=== PATIENT | male | born 1975 | race Caucasian/White ===

== ENCOUNTER → 2018-12-01 | Outpatient (CLI) | payer OTHER ==
[~2018-12-01] MED LIST: ALPR2TAB8 PO; LORC10TA PO; TRIA1CAP3 PO
== END | disposition home or self-care (01) ==
LOC: CVU 13:48
PROVIDERS: ATTEND Internal Medicine Cardiovascular Disease
DX: I34.0 Nonrheumatic mitral (valve) insufficiency (principal); I48.0 Paroxysmal atrial fibrillation; I10 Essential (primary) hypertension
CPT/HCPCS: 93306

== ENCOUNTER → 2019-12-08 | Outpatient (CLI) | payer OTHER ==
[~2019-12-08] MED LIST changes: +OMNIPAQUE 350 MG/ML, 100ML BOTTLE ONE
== END | disposition home or self-care (01) ==
LOC: CFH 08:57
PROVIDERS: ATTEND Internal Medicine Cardiovascular Disease
DX: I51.7 Cardiomegaly (principal); I48.91 Unspecified atrial fibrillation
CPT/HCPCS: 71046; 75572; Q9967

== ENCOUNTER 2019-12-14 06:32 | Observation (INO) | payer OTHER ==
[~2019-12-14] VITALS: Ht 185.4 cm; Wt 124.6 kg
[~2019-12-14 06:32] MED LIST changes: -OMNIPAQUE 350 MG/ML, 100ML BOTTLE ONE
[2019-12-14] MEDS ORDERED: SODIUM CHLORIDE 0.9% 1,000 ML IV SCH ×2 (06:36→07:00)
[2019-12-14 06:47] VITALS: BP 131/90
[2019-12-14] MEDS ORDERED: ASPI81TA45 PO (06:58)
[2019-12-14] MEDS ORDERED: METO25TA91 PO (06:58)
[2019-12-14] MEDS ORDERED: ALPR2TAB2 PO (06:59)
[2019-12-14 07:34] LABS: BASOPHILS # (AUTO) 0.06 x10^3/uL (0-0.1); BASOPHILS % (AUTO) 1 % (0-1); EOSINOPHILS # (AUTO) 0.09 x10^3/uL (0-0.4); EOSINOPHILS % (AUTO) 1 % (1-7); LYMPHOCYTES # (AUTO) 2.55 x10^3/uL (1-3.4); LYMPHOCYTES % (AUTO) 31 % (22-44); MD NO; MEAN CORPUSCULAR HGB CONC 33.4 g/dL (33.2-36.2); MEAN CORPUSCULAR VOLUME 89.9 fL (81-97); MEAN PLATELET VOLUME 8.8 fL (7.4-10.4); MONOCYTES # (AUTO) 0.45 x10^3/uL (0.2-0.8); MONOCYTES % (AUTO) 6 % (2-9); NEUTROPHILS # (AUTO) 5.08 x10^3/uL (1.8-6.8); NEUTROPHILS % (AUTO) 62 % (42-75); PLATELET COUNT 242 x10^3/uL (130-400); RED CELL DISTRIBUTION WIDTH 13.1 % (9.4-14.8)
[2019-12-14] MEDS ORDERED: MIDAZOLAM 1 MG/ML, 2ML ONE (07:39)
[2019-12-14] MEDS ORDERED: FENTANYL PF 100 MCG/2ML ONE ×3 (07:39→12:39)
[2019-12-14] MEDS ORDERED: LIDOCAINE-MPF 2% ,5ML ONE (07:41)
[2019-12-14 07:43] LABS: ALANINE AMINOTRANSFERASE 30 U/L (12-78); ALBUMIN 4.2 g/dL (3.4-5.0); ANION GAP 6 mmol/L (5-15); CALCIUM 9.2 mg/dL (8.5-10.1); CHLORIDE 110 mmol/L (98-107); CHOLESTEROL, TOTAL 142 mg/dL (140-239); CREATININE 1.07 mg/dL (0.7-1.3)
[2019-12-14] MEDS ORDERED: ROCURONIUM 10MG/ML,5ML ONE ×3 (07:44→12:22)
[2019-12-14] MEDS ORDERED: GLYCOPYRROLATE 0.2MG/1ML, 5ML ONE (07:44)
[2019-12-14] MEDS ORDERED: NEOSTIGMINE 1 MG/ML, 10ML ONE (07:44)
[2019-12-14] MEDS ORDERED: PROPOFOL 10 MG/ML, 20ML ONE (07:44)
[2019-12-14] MEDS ORDERED: SUCCINYLCHOLINE 20 MG/ML, 10ML ONE (07:44)
[2019-12-14] MEDS ORDERED: ONDANSETRON 2MG/ML, 2ML ONE (07:44)
[2019-12-14] MEDS ORDERED: DEXAMETHASONE 4 MG/ML, 1ML ONE (07:44)
[2019-12-14 07:46] LABS: ALKALINE PHOSPHATASE 90 U/L (45-117); BILIRUBIN,TOTAL 0.8 mg/dL (0.2-1.0); CHOL/HDL RATIO 3.9; HDL CHOL % 25 % (26-37); HDL CHOLESTEROL (DIRECT) 36 mg/dL (40-60); LDL CHOLESTEROL,CALCULATED 81 mg/dL (54-169); LDL/HDL RATIO 2.3 (0.5-3.0); TOTAL PROTEIN 7.6 g/dL (6.4-8.2); TRIGLYCERIDES 126 mg/dL (50-200); VLDL CHOLESTEROL 25 mg/dL (0-25)
[2019-12-14] MEDS ORDERED: MEPERIDINE/PF 25MG/ML,1ML IVPush PRN (08:00)
[2019-12-14] MEDS ORDERED: HYDROmorphone 2 MG/ML, 1ML IVPush PRN (08:00)
[2019-12-14] MEDS ORDERED: EPHEDRINE 50 MG/ML, 1ML IVPush PRN (08:00)
[2019-12-14] MEDS ORDERED: ACETAMINOPHEN 325 MG TABLET PO PRN (08:00)
[2019-12-14] MEDS ORDERED: OXYcodone 5 MG/5 ML ORAL.SOL UDC PO PRN (08:00)
[2019-12-14] MEDS ORDERED: FENTANYL PF 100 MCG/2ML IV PRN (08:00)
[2019-12-14] MEDS ORDERED: hydrALAzine 20 MG/ML, 1ML IV PRN (08:00)
[2019-12-14] MEDS ORDERED: PROMETHAZINE 25 MG/ML, 1ML IV PRN (08:00)
[2019-12-14] MEDS ORDERED: LABETALOL 5MG/ML, 20ML IV PRN (08:00)
[2019-12-14] MEDS ORDERED: ONDANSETRON 2MG/ML, 2ML IV PRN (08:00)
[2019-12-14] MEDS ORDERED: KETOROLAC 30 MG/1 ML ONE (08:07)
[2019-12-14] MEDS ORDERED: LIDOCAINE 2%, 20ML ONE (08:16)
[2019-12-14] MEDS ORDERED: PHENYLEPHRINE 10 MG/ML ONE (08:36)
[2019-12-14] MEDS ORDERED: HEPARIN 1,000 UNITS/ML, 10ML ONE ×4 (09:37→10:58)
[2019-12-14] MEDS ORDERED: APIXABAN 5 MG TABLET ONE (13:16)
[2019-12-14] MEDS ORDERED: PROMETHAZINE 25 MG/ML, 1ML ONE (13:21)
[2019-12-14] MEDS ORDERED: APIXABAN 5 MG TABLET PO ONE (13:30)
[2019-12-14 14:25] VITALS: BP 98/64
[2019-12-14] MEDS: SOTALOL 80MG TABLET PO SCH (18:23)
[2019-12-14 20:30] VITALS: BP 106/72
[2019-12-14] MEDS: ALPRazolam 1MG TAB PO SCH (20:58)
[2019-12-14] MEDS: COLCHICINE 0.6 MG CAPSULE PO SCH (21:02)
[2019-12-14] MEDS: APIXABAN 5 MG TABLET PO SCH (21:02)
[2019-12-15 03:56] VITALS: BP 111/73
[2019-12-15] MEDS: ALPRazolam 1MG TAB PO SCH ×2 (04:15→20:26)
[2019-12-15] MEDS: SOTALOL 80MG TABLET PO SCH ×2 (06:31→18:35)
[2019-12-15 07:50] VITALS: BP 108/66
[2019-12-15] MEDS: APIXABAN 5 MG TABLET PO SCH ×2 (08:30→20:25)
[2019-12-15] MEDS: COLCHICINE 0.6 MG CAPSULE PO SCH ×2 (08:30→20:25)
[2019-12-15 13:25] VITALS: BP 105/64
[2019-12-15 20:01] VITALS: BP 101/68
[2019-12-16 02:05] VITALS: BP 108/71
[2019-12-16] MEDS: SOTALOL 80MG TABLET PO SCH (05:57)
[2019-12-16 07:49] VITALS: BP 138/69
[2019-12-16 07:50] VITALS: BP 117/78
[2019-12-16] MEDS ORDERED: APIX5TAB PO (08:14)
[2019-12-16] MEDS ORDERED: SOTA80TA18 PO (08:14)
[2019-12-16 08:43] VITALS: BP 127/83
[2019-12-16] MEDS: APIXABAN 5 MG TABLET PO SCH (08:47)
[2019-12-16] MEDS: COLCHICINE 0.6 MG CAPSULE PO SCH (08:47)
[2019-12-16] MEDS: ALPRazolam 1MG TAB PO SCH (08:48)
[2020-01-26] MEDS ORDERED: SOTA120T26 PO (10:48)
[2020-01-26] MEDS ORDERED: METO25TA91 PO (10:48)
== END 2019-12-16 10:10 | disposition home or self-care (01) ==
LOC: CACL 06:32 → ORIP 12:54 → 5SO 14:00
PROVIDERS: ADMIT Internal Medicine Cardiovascular Disease; ATTEND Internal Medicine Cardiovascular Disease
DX: I48.0 Paroxysmal atrial fibrillation (principal); I48.92 Unspecified atrial flutter; D68.69 Other thrombophilia; Z79.01 Long term (current) use of anticoagulants; Z79.899 Other long term (current) drug therapy
CPT/HCPCS: 36415; 71046; 80053; 80061; 85025; 85347; 93005; 93306; 93312; 93321; 93325; 93613; 93655; 93656; 93657; 93662; C1730; C1732; C1759; C1766; C1893; C1894; G0378; J0330; J1100; J1644; J1885; J2250; J2370; J2405; J2550; J2704; J2710; J3010; J3490; Q9967

== ENCOUNTER 2019-12-29 06:03 | Day surgery (SDC) | payer OTHER ==
[~2019-12-29] VITALS: Ht 185.4 cm; Wt 122.7 kg
[~2019-12-29 06:03] MED LIST changes: +ALPR2TAB2 PO; +APIX5TAB PO; +ASPI81TA45 PO; +METO25TA91 PO; +SOTA80TA18 PO
[2019-12-29 06:19] VITALS: BP 124/77
[2019-12-29 06:43] LABS: BASOPHILS # (AUTO) 0.08 x10^3/uL (0-0.1); BASOPHILS % (AUTO) 1 % (0-1); EOSINOPHILS # (AUTO) 0.09 x10^3/uL (0-0.4); EOSINOPHILS % (AUTO) 1 % (1-7); LYMPHOCYTES # (AUTO) 2.59 x10^3/uL (1-3.4); LYMPHOCYTES % (AUTO) 27 % (22-44); MD NO; MEAN CORPUSCULAR HEMOGLOBIN 30.2 pg (27.5-34.5); MEAN CORPUSCULAR HGB CONC 33.9 g/dL (33.2-36.2); MEAN CORPUSCULAR VOLUME 89.2 fL (81-97); MEAN PLATELET VOLUME 8.8 fL (7.4-10.4); MONOCYTES # (AUTO) 0.61 x10^3/uL (0.2-0.8); MONOCYTES % (AUTO) 6 % (2-9); NEUTROPHILS # (AUTO) 6.14 x10^3/uL (1.8-6.8); NEUTROPHILS % (AUTO) 65 % (42-75); PLATELET COUNT 255 x10^3/uL (130-400); RED BLOOD COUNT 5.39 x10^6/uL (4.38-5.82); RED CELL DISTRIBUTION WIDTH 12.9 % (9.4-14.8)
[2019-12-29 06:52] LABS: ANION GAP 3 mmol/L (5-15); CALCIUM 9.1 mg/dL (8.5-10.1); CHLORIDE 110 mmol/L (98-107); CREATININE 0.92 mg/dL (0.7-1.3)
[2019-12-29] MEDS ORDERED: PROPOFOL 10 MG/ML, 20ML ONE (07:32)
== END 2019-12-29 09:26 | disposition home or self-care (01) ==
LOC: CACL 06:03
PROVIDERS: ATTEND Internal Medicine Cardiovascular Disease
DX: I48.92 Unspecified atrial flutter (principal); I48.0 Paroxysmal atrial fibrillation; E66.3 Overweight; Z68.35 Body mass index [BMI] 35.0-35.9, adult; Z79.01 Long term (current) use of anticoagulants; Z79.899 Other long term (current) drug therapy
CPT/HCPCS: 36415; 80048; 85025; 92960; J2704

== ENCOUNTER 2021-05-22 10:46 | Outpatient (CLI) | payer OTHER ==
[~2021-05-22 10:46] MED LIST changes: +SOTA120T26 PO
== END 2021-05-22 23:59 | disposition home or self-care (01) ==
LOC: CVU 10:46
PROVIDERS: ATTEND Internal Medicine Cardiovascular Disease
DX: I36.1 Nonrheumatic tricuspid (valve) insufficiency (principal); I48.0 Paroxysmal atrial fibrillation
CPT/HCPCS: 93306